=== PATIENT | male | born 1965 | race Caucasian/White ===

== ENCOUNTER 2024-05-13 10:49 | Emergency (ER) | payer OTHER, SELFPAY ==
[2024-05-13 10:55] VITALS: BP 147/96; PULSE 69; RESP 18; TEMP 36.4; O2SAT 99; BMI 23.7
--- NOTE | 2024-05-13 11:07 | ED_ITS ---
HPI - Dental/Oral General Time Seen by Provider: 11:07 Date Seen: 05/13/24 Chief complaint: Dental/Oral/Mouth Injury/Pain Stated complaint: wants IV antibiotics, referred by dentist Time Seen by Provider: 05/13/24 11:07 Source: patient and RN notes reviewed Mode of arrival: ambulatory Limitations: no limitations History of Present Illness HPI Narrative: This 58-year-old male presents to the ER today believing he needs IV antibiotics for dental infection. He was started on clindamycin on May 11 for dental infection. It is tooth 14., he went to the oral surgeon yesterday, did have an incision and drainage which he thought went well from what the surgeon told him. The surgeon did wonder if he needed IV antibiotics. Patient states his thermometer is broken home but he is pretty sure he has had fevers. He has had night sweats, reported fevers and chills without ability to take his temperature. His cheek is more swollen today on the left side, feels like he is getting some swelling on the left eye a soft tissue area. No visual change, no double vision. Pain is improved in the actual tooth area but the facial swelling is worse. He believes he had a mild rash with penicillin as a kid. He believes that he is subsequently taken amoxicillin without any complication. He does note some crackling and popping sensation when opening and closing his jaw within his ear. Location: Tooth # (14) Related Data Home Medications ?Medication ?Instructions ?Recorded ?Confirmed acetaminophen 300 mg-codeine 30 mg 1 tab PO Q4H PRN pain 05/13/24 05/13/24 tablet clindamycin HCl 300 mg capsule 300 mg PO Q8H 05/13/24 05/13/24 Allergies Allergy/AdvReac Type Severity Reaction Status Date / Time Penicillins Allergy Verified 05/13/24 10:54 Review of Systems Narrative: As per HPI. PFS PFS Social History Smoking Status: Former smoker Do you use any of these nicotine containing products: None Second hand tobacco smoke exposure: No How often do you have a drink containing alcohol: 2-3 times a week How many standard drinks containing alcohol do you have on a typical day: 1 or 2 How often do you have six or more drinks on one occasion: Never AUDIT-C Alcohol total score: 3 Non-prescribed substance use: denies use service: Yes Exam Const: Vital Signs, click to edit/add: Vital Signs - 24 hr 05/13/24 10:55 05/13/24 14:25 Temperature 97.6 F Pulse Rate [Pulse Oximeter] 69 68 Respiratory Rate 18 18 Blood Pressure [Ri ght Upper Arm] 147/96 H 150/106 H Pulse Oximetry 99 99 Oxygen Delivery Me thod Room Air Room Air With this 58-year-old male is alert, interactive, no apparent distress, seen exam room 4. Notably you can see left cheek/facial swelling. There is maybe mild infraorbital lower eyelid swelling, do not appreciate upper eyelid swelling or significant periorbital swelling on my visualization. Cheek has some mild pinkish change to it, is not significantly palpably tender, no fluctuance noted. Pupils are equal round reactive, sclera clear, conjugate gaze. TMs canals are normal, no evidence of infection. Can open and close his TMJs without any difficulty. Oropharynx reveals some bruising along the posterior anterior tonsillar pillar area where he presumably had anesthesia injected locally yesterday. I see no fluctuance no significant erythema, note no purulent drainage. Oral mucosa is otherwise elsewhere normal, tongue appears normal. No submental or cervical adenopathy or masses. Neck is supple. Lungs are clear, good air entry, no wheezing or crackles. CV regular rate and rhythm, no murmur, normal S1-S2. Documenting provider has reviewed patient's vital signs: yes Course Course ED Course: Did discuss with radiologist Dr. Pichardo on imaging modality of choice. We often do soft tissue neck for dental infections but this is the upper jaw and there was concern clinically from what patient is reporting for periorbital changes. Has advised that we should do maxillofacial imaging with and without IV contrast. IV will be placed, baseline labs will be obtained. Did review [employer] and patient could consider Levaquin as a potential option verses IV cephalosporin with IV Flagyl. Will need to see what CT showing us as well as labs. Reevaluation(s) Time of Reevaluation #1: 12:59 Reevaluation #1: Have reviewed patient's CT findings with the abscess, need for further treatment and management with oral surgery. Have reviewed with him that [facility] is closed to anything but trauma. We will try a [facility], [place]. In the meantime, will initiate 2 g IV Rocephin and 500 mg IV Flagyl. Time of Reevaluation #2: 14:59 Reevaluation #2: Have discussed options with patient. Have reviewed with him that essentially I believe that abscess needs to be drained, tooth pulled from what the oral surgeons are telling me, before infection will settle down. We have discussed just observing overnight verses returning for Flagyl at 10:00 p.m., he would like to return for Flagyl. By the morning, he will be at the oral surgeon and not be able to come back for next dose of Flagyl. Hopefully once the tooth is pulled, this will start improved. I would favor completion of his clindamycin but he can discuss this with the oral surgeon. Consultations Consultation #1: Did speak with Dr. Rodas regarding transfer. They were closed to all but trauma at this time. She recommend reaching out to [place] [facility] as they have the same oral surgeons covering them. 13:03 did speak with Eleanor FRANCO at [place]. Images are being pushed through. She will consult Oral surgery and call back once they have been able to review the images. 13:07 [place] has no beds but did get to speak with the oral surgeon Dr. Barraza. He will look at CT images and call back with recommendations. 13:48 Patient went to [facility], Dr. Barbosa. Did speak with him, he is an chick room supervisor and saw the patient emergently yesterday and did an I&D, recommended he seek IV antibiotics yesterday due to swelling. He can attempt to help get patient into an oral surgeon to have the tooth out if needed. Reviewed that I have no affliation with oral or dental professionals, limitations of transfer anywhere. 13:[address] Barraza again, he recommends dental extraction of this tooth to treat, states this will resolve his issue. He is not accepting in transfer, recommends that we look locallly. 13:59 Called [facility] back, they are going to try to find some oral surgeon locally to see him, may not be today. They plan on calling patient directly but do have my phone number. I will address antibiotics once we have a definitive plan, has about 40minutes left of his Flagyl currently, Rocephin is done. 14:17 have received phone call from [facility], they cannot get him into an oral surgeon until tomorrow morning at 7:00 a.m., will be going to advanced oral surgery in [place]. He will need a pack train driver, will be NPO after midnight. I will deal with antibiotics and discuss this with patient. Time: 12:55 Vital Signs Vital signs: Initial Vital Signs Temperature 97.6 F 05/13/24 10:55 Temperature Source Temporal Artery Scan 05/13/24 10:55 Pulse Rate 69 05/13/24 10:55 Pulse Rhythm Regular 05/13/24 10:55 Respiratory Rate 18 05/13/24 10:55 Blood Pressure 147/96 H 05/13/24 10:55 Blood Pressure Mean 113 H 05/13/24 10:55 Blood Pressure Position Sitting 05/13/24 10:55 Pulse Oximetry 99 05/13/24 10:55 Oxygen Delivery Method Room Air 05/13/24 10:55 Vital Signs Temperature 97.6 F 05/13/24 10:55 Pulse Rate 69 05/13/24 10:55 Respiratory Rate 18 05/13/24 10:55 Blood Pressure 147/96 H 05/13/24 10:55 Pulse Oximetry 99 05/13/24 10:55 Oxygen Delivery Method Room Air 05/13/24 10:55 Temperature 97.6 F 05/13/24 10:55 Pulse Rate 68 05/13/24 14:25 Respiratory Rate 18 05/13/24 14:25 Blood Pressure 150/106 H 05/13/24 14:25 Pulse Oximetry 99 05/13/24 14:25 Oxygen Delivery Method Room Air 05/13/24 14:25 Medications Administered Medications: Discontinued Medications Generic Name Dose Route Start Last Admin Trade Name Freq PRN Reason Stop Dose Admin Ceftriaxone Sodium 2 gm/ 100 mls @ 200 mls/hr 05/13/24 12:56 05/13/24 13:40 Sodium Chloride IVPB 05/13/24 12:57 Infused ONCE ONE Infusion Metronidazole 500 mg in 100 mls @ 100 mls/hr 05/13/24 12:56 05/13/24 14:50 Metronidazole IVPB 05/13/24 13:55 Infused ONCE ONE Infusion MDM - Dental/Oral Lab Data Attestation: I reviewed the patient's lab results. Lab results narrative: CRP and procalcitonin not back during patient's 4 hour stay in the ED, lab has delay due to equipment moving today. Labs: Lab Results 05/13/24 Range/Units 10:44 WBC 7.35 (4.50-11.00) K/uL RBC 5.13 (4.30-5.90) m/uL Hgb 16.0 (13.5-17.5) gm/dL Hct 48.5 (37.0-53.0) % MCV 95 (80-100) fL MCH 31 (26-34) pg MCHC 33 (32-36) gm/dL RDW Coeff of Tana 12.4 (11.5-15.5) % Plt Count 184 (140-440) K/uL Neut % (Auto) 64.0 (42.0-72.0) % Lymph % (Auto) 19.9 L (20-44) % [place] % (Auto) 12.1 H (0.0-11.0) % Eos % (Auto) 2.9 (0.0-7.0) % Baso % (Auto) 0.4 (0.0-3.0) % Neut # (Auto) 4.71 (1.7-7.0) K/uL Lymph # (Auto) 1.50 (0.90-2.90) K/uL [place] # (Auto) 0.90 (0.00-0.90) K/UL Eos # (Auto) 0.21 (0.00-0.50) K/uL Baso # (Auto) 0.03 (0.00-0.30) K/uL Abs Immat Gran (auto) 0.05 (0.00-0.30) K/uL Imm/Tot Granulo (auto) 0.7 % Sodium 137 (135-149) mmol/L Potassium 3.8 (3.6-5.1) mmol/L Chloride 98 (96-114) mmol/L Carbon Dioxide 27 (20-32) mmol/L Anion Gap 12 (7-15) mEq/L BUN 11 (7-30) mg/dL Creatinine 1.0 (0.5-1.5) mg/dL Estimated Creat Clear 97.41 Estimated GFR 88 ml/min Glucose 97 (60-115) mg/dL Lactate 0.8 (0.5-1.9) mmol/L Calcium 9.4 (8.4-10.6) mg/dL Discharge Plan Discharge Clinical Impression: Dental abscess, Cellulitis, face Acute maxillary sinusitis Qualifiers: Recurrence: not specified as recurrent Qualified Code(s): J01.00 - Acute maxillary sinusitis, unspecified Patient Disposition: Home, Self-Care Condition: Stable Instructions: Dental Abscess (ED), Cellulitis (ED) Additional Instructions: Stop clindamycin for today, discussed with oral surgeon tomorrow but would favor you restarting your oral course of clindamycin once the tooth is pulled. Return tonight for subsequent dose of IV Flagyl at 10:00 p.m.. You need to go to advanced oral surgery tomorrow morning at 7:00 a.m. in [place], information has been sent to. If you are worsening overnight, do recommend proceeding to an emergency facility that has oral surgery capacity. Do not eat or drink after midnight, he will need a pack train driver for your surgery appointment tomorrow. Activity Level: Activity as Tolerated Prescriptions: No Action clindamycin HCl 300 mg capsule 300 mg PO Q8H acetaminophen-codeine 300-30 mg tablet 1 tab PO Q4H PRN (Reason: pain) Follow Up/Referrals: Provider,Not a Local [Primary Care Provider] - Stand Alone Forms: [employer] Info Instructions
--- NOTE | 2024-05-13 11:18 | CRLHL7_ITS ---
For Patients: As a result of the Century Cures Act, medical imaging exams and procedure reports are released immediately into your electronic medical record. You may view this report before your referring provider. If you have questions, please contact your health care provider. INDICATION: Dental abscess with worsening soft tissue swelling COMPARISON: None. TECHNIQUE: CT of the maxillofacial region with intravenous contrast (93 milliliters Isovue 370). FINDINGS: Streak artifacts from dental hardware limits evaluation adjacent structures. There is a periapical abscess associated with a left maxillary molar which demonstrates destruction of the adjacent superficial bony cortex (2/80) with an adjacent rim enhancing abscess which measures 2 x 0.4 centimeters (3/77). Prominent soft tissue edema in the left premalar region and left anterior neck with thickening of the superficial musculoaponeurotic system (SMAS) and platysma. Some of this fat stranding also extends to the left periorbital region. There is moderate mucosal thickening in the left maxillary sinus with otherwise mild scattered paranasal sinus mucosal thickening. There is subtle fat stranding adjacent to the posterolateral wall of the left maxillary sinus (3/89). Trace left greater than right mastoid effusion. Unremarkable CT appearance of the salivary glands. Partially imaged degenerative change in the cervical spine. Unremarkable CT appearance of the visualized aerodigestive tract. Preserved fat planes within the bilateral parapharyngeal space. No definite regional lymphadenopathy. Leftward deviation of the nasal septum which contacts the left inferior turbinate. IMPRESSION: Periapical abscess associated with a left maxillary molar with associated destruction of the adjacent superficial bony cortex and an adjacent rim enhancing 2 x 0.4 centimeter abscess. Associated left neck and facial soft tissue stranding/edema as further described above. There is also moderate mucosal thickening in the left maxillary sinus and subtle fat stranding adjacent to the posterolateral wall of the left maxillary sinus compatible with odontogenic sinusitis. Please note that all CT scans at this facility use dose modulation, iterative reconstruction, and/or weight-based dosing when appropriate to reduce radiation dose to as low as reasonably achievable. Dictated by Ankur Sherman MD @ 05/13/2024 12:42:58 PM (Electronically Signed)
[2024-05-13 11:48] LABS: Lactate* 0.8 mmol/L (0.5-1.9)
[2024-05-13 12:09] LABS: Basophils Absolute Auto 0.03 K/uL (0.00-0.30); Basophils Percent Auto 0.4 % (0.0-3.0); Eosinophils Absolute Auto 0.21 K/uL (0.00-0.50); Eosinophils Percent Auto 2.9 % (0.0-7.0); Hematocrit 48.5 % (37.0-53.0); Immature Granulocytes Abs Auto 0.05 K/uL (0.00-0.30); Immature Granulocytes Pct Auto 0.7 %; Lymphocytes Percent Auto 19.9 % (20-44); Mean Corpuscular HGB Conc 33 gm/dL (32-36); Mean Corpuscular Hemoglobin 31 pg (26-34); Mean Corpuscular Volume 95 fL (80-100); Monocytes Percent Auto 12.1 % (0.0-11.0); Neutrophils Absolute Auto 4.71 K/uL (1.7-7.0); Platelet Count* 184 K/uL (140-440); RDW Coefficient of Variation % 12.4 % (11.5-15.5); Red Blood Count 5.13 m/uL (4.30-5.90); White Blood Count* 7.35 K/uL (4.50-11.00)
[2024-05-13 12:16] LABS: Slide Review Reflex No
[2024-05-13 12:19] LABS: Chloride* 98 mmol/L (96-114); Potassium* 3.8 mmol/L (3.6-5.1); Sodium* 137 mmol/L (135-149)
[2024-05-13 12:22] LABS: Blood Urea Nitrogen* 11 mg/dL (7-30); Est. Creatinine Clearance* 97.41; Estimated Glomerular Filt Rate 88 ml/min
[2024-05-13 12:23] LABS: Anion Gap 12 mEq/L (7-15); Calcium* 9.4 mg/dL (8.4-10.6); Carbon Dioxide* 27 mmol/L (20-32); Glucose* 97 mg/dL (60-115)
[2024-05-13] MEDS: cefTRIAXone 2 GM in 0.9 % SODIUM CHLORIDE Mini-bag 100 ML IVPB (13:06)
[2024-05-13] MEDS: metroNIDAZOLE 500 MG/100 ML PIGGYBACK 100 MG IVPB (13:42)
[2024-05-13 14:25] VITALS: BP 150/106; PULSE 68; RESP 18; O2SAT 99
[2024-05-13 18:08] LABS: Procalcitonin* 0.16 ng/mL (<0.50)
[2024-05-13 18:14] LABS: C Reactive Protein* 11.2 mg/dL (0.5-1.0)
== END 2024-05-13 15:39 | disposition home or self-care (01) ==
PROVIDERS: Emergency Provider Family Medicine
DX: K04.7 Periapical abscess without sinus (principal); L03.211 Cellulitis of face; J01.00 Acute maxillary sinusitis, unspecified
CPT/HCPCS: 36415; 70487; 80048; 83605; 84145; 85025; 86140; 96365; 96368; 99284; 99285; J0696; J1836; Q9967

== ENCOUNTER 2024-05-13 22:03 | Outpatient (RCR) | payer OTHER, SELFPAY ==
[2024-05-13 23:14] VITALS: BP 142/102; PULSE 73; RESP 16; TEMP 36.8; O2SAT 92
[2024-05-13] MEDS: metroNIDAZOLE 500 MG/100 ML PIGGYBACK 100 MG IVPB (23:31)
[2024-05-14 00:37] VITALS: BP 157/100; PULSE 66; RESP 16; TEMP 37; O2SAT 99
== END 2024-05-14 00:39 | disposition home or self-care (01) ==
PROVIDERS: PCP Family Medicine; Visit Provider Family Medicine
DX: K04.7 Periapical abscess without sinus (principal); L03.211 Cellulitis of face; Z79.2 Long term (current) use of antibiotics; J01.00 Acute maxillary sinusitis, unspecified
CPT/HCPCS: 96365; J1836